=== PATIENT | male | born 1950 | race Caucasian/White ===

== ENCOUNTER 2018-02-17 14:34 | Emergency (ER) | payer MEDICARE, OTHER ==
[2018-02-17] MEDS ORDERED: Sodium Chloride 0.9% 500 ML IV ONE (14:54)
[2018-02-17] MEDS ORDERED: MethylPREDNISolone 40 mg Vial ONE (14:56)
[2018-02-17 15:00] LABS: BASO # 0.1 K/uL (0.0-0.2); BASO % 0.6 % (0.0-2.0); EOS # 1.2 K/uL (0.0-0.7); EOS % 8.4 % (0.0-4.0); LYMPH # 0.9 K/uL (1.0-4.3); LYMPH % 6.2 % (20.0-40.0); MEAN CELL VOLUME 92.5 fL (80.0-94.0); MEAN CORPUSCULAR HEMOGLOBIN 30.9 pg (27.0-31.0); MEAN CORPUSCULAR HGB CONC 33.4 g/dL (33.0-37.0); MEAN PLATELET VOLUME 8.5 fL (7.2-11.7); MONO # 0.8 K/uL (0.0-0.8); MONO % 5.4 % (0.0-10.0); NEUT # 11.8 K/uL (1.8-7.0); NEUT % 79.4 % (50.0-75.0); NRBC % 0.1 % (0.0-2.0); PLATELET COUNT 404 K/uL (130-400); RBC 4.84 Mil/uL (4.40-5.90); WHITE BLOOD COUNT 14.9 K/uL (4.8-10.8)
[2018-02-17 15:06] LABS: VENOUS BLOOD GAS BASE EXCESS -0.9 mmol/L (0.0-2.0); VENOUS BLOOD GAS PCO2 50 mmHg (40-60); VENOUS BLOOD GAS PO2 61 mm/Hg (30-55); VENOUS BLOOD PH 7.32 (7.32-7.43)
--- NOTE | 2018-02-17 15:12 | RAD ---
Date of service: 02/17/2018 PROCEDURE: CHEST RADIOGRAPH, 1 VIEW HISTORY: SOB COMPARISON: None available. FINDINGS: LUNGS: No dense consolidation appreciated. Linear thin bandlike opacities project over the lateral right upper lung zone appearances of unknown chronicity -chronic scarring is a consideration. Comparison with prior outside studies is advised. There is patchy low-density opacity bordering the left heart border over the lower lung zone of unclear significance on this single view semi-erect portable study. Its clinical significance - if any is unclear. Bilateral patchy lucencies throughout both lungs compatible with emphysematous changes and scattered abnormally prominent interstitial lung markings and probable minimal biapical pleural thickening is also suggested. PLEURA: No pneumothorax or pleural fluid seen. CARDIOVASCULAR: Normal. Minimal pulmonary venous congestion cannot be excluded. OSSEOUS STRUCTURES: Thoracic spondylosis. VISUALIZED UPPER ABDOMEN: Normal. OTHER FINDINGS: None. IMPRESSION: No dense consolidation. Bilateral nonspecific vague low-density patchy opacities most conspicuous and confluent bordering left heart. A more bandlike yet thin opacity simulating scarring and/or fibrosis projects over the right mid to upper lung zone. As these findings are of unknown chronicity, consider noncontrast CT chest imaging for further evaluation. Background COPD emphysema number interstitial lung markings are inferred. Heart size normal. Minimal pulmonary venous congestion based on this appearance cannot be excluded.
[2018-02-17 15:27] LABS: EOSINOPHIL 5 % (0-4); LYMPHOCYTE 10 % (20-40); MONOCYTE 5 % (0-10); NEUTROPHIL 80 % (50-75); PLATELET ESTIMATE NORMAL (NORMAL); TOTAL CELLS COUNTED 100
[2018-02-17 15:30] LABS: BLOOD UREA NITROGEN 15 mg/dL (9-20); GFR AFRICAN-AMERICAN > 60; GFR NON-AFRICAN AMERICAN > 60
[2018-02-17 15:31] LABS: ALB/GLOB RATIO 1.1 (1.0-2.1); ALBUMIN 4.2 g/dL (3.5-5.0); CALCIUM 9.1 mg/dl (8.6-10.4)
[2018-02-17 15:32] LABS: ALT/SGPT 19 U/L (21-72); AST/SGOT 19 U/L (17-59); B-TYPE NATRIURETIC PEPTIDE 60.8 pg/mL (0-900)
[2018-02-17] MEDS ORDERED: Albuterol-Ipratrop 3 mg / 0.5 (3 ml) UD ONE (15:32)
[2018-02-17] MEDS: Albuterol-Ipratrop 3 mg / 0.5 (3 ml) UD IH SCH (16:11)
--- NOTE | 2018-02-17 16:58 | C.PDOC ---
History Of Present Illness 68yo male with history of asthma, comes in with 2 day history of cough, and chest tightness. Patient arrives tachycardic, tachepneic, tri-prodding, and reports sweats and a productive cough. Patient states he has been intubated but many years prior. He denies any fever, chills, headache, nausea, vomiting and offers no additional medical complaints. Time Seen by Provider: 02/17/18 14:46 Chief Complaint (Nursing): Respiratory Distress History Per: Patient History/Exam Limitations: no limitations Onset/Duration Of Symptoms: Days Current Symptoms Are (Timing): Still Present Exacerbating Factor(s): Coughing Associated Symptoms: Productive Cough. denies: Fever, Chills Additional History Per: Patient Past Medical History Reviewed: Historical Data, Nursing Documentation, Vital Signs Vital Signs: Last Vital Signs Temp 98.6 F 02/17/18 17:01 Pulse 108 H 02/17/18 17:01 Resp 23 02/17/18 17:01 BP 127/75 02/17/18 17:01 Pulse Ox 100 02/17/18 17:27 - Medical History PMH: Asthma Denies: Chronic Kidney Disease Surgical History: No Surg Hx - [facility] Procedures TETANUS TOXOID ADMINIST (05/28/14) Family History: States: Unknown Family Hx - Social History Hx Tobacco Use: No Hx Alcohol Use: No Hx Substance Use: No - Immunization History Hx Tetanus Toxoid Vaccination: No Hx Influenza Vaccination: No Hx Pneumococcal Vaccination: No Review Of Systems Except As Marked, All Systems Reviewed And Found Negative. Constitutional: Negative for: Fever, Chills Cardiovascular: Positive for: Chest Pain (tightness) Respiratory: Positive for: Cough, Shortness of Breath, Sputum Gastrointestinal: Negative for: Nausea, Vomiting Neurological: Negative for: Headache Physical Exam - Physical Exam Appears: In Acute Distress (respiratory) Skin: Warm, Dry Head: Atraumatic, Normacephalic Eye(s): bilateral: Normal Inspection, PERRL, EOMI Oral Mucosa: Moist Neck: Normal ROM, Supple Chest: Symmetrical Cardiovascular: Rhythm Regular (tachycardic) Respiratory: Decreased Breath Sounds (poor air entry bilaterally), Wheezing, Other (white sputum) Gastrointestinal/Abdominal: Soft, No Tenderness Back: Normal Inspection Extremity: Normal ROM, No Pedal Edema Neurological/Psych: Oriented x3, Normal Cognition, Normal Motor, Normal Sensation Gait: Steady ED Course And Treatment - Laboratory Results Result Diagrams: 02/17/18 14:57 02/17/18 14:57 ECG: Interpreted By Me, Viewed By Me ECG Rhythm: Sinus Tachycardia, R BBB (incomplete) ECG Interpretation: No Acute Changes Interpretation Of ECG: no ST/T changes Rate From EC O2 Sat by Pulse Oximetry: 100 (RA) Pulse Ox Interpretation: Normal Medical Decision Making Medical Decision Making: Plan: -- Labs -- EKG -- Duoneb 3ml INH -- Solumedrol 125mg IVP -- Vapotherm treatment -- IV Fluids -- CXR Patient states he feels much better, I recommended he stay in the hospital, still has wheezing. Patient states he must go home. Plan to discharge with recommendation to return if he feels worst. Disposition Counseled Patient/Family Regarding: Studies Performed, Diagnosis, Need For Followup, Rx Given - Disposition Disposition: HOME/ ROUTINE Disposition Time: 17:37 Condition: STABLE Prescriptions: Albuterol 0.083% [Albuterol 0.083% Inhal Joi (2.5 mg/3 ml) UD] 2.5 mg IH QID # 24 neb Albuterol HFA [Ventolin HFA 90 mcg/actuation (8 g)] 1 puff IH QID PRN #1 puff PRN Reason: Cough Azithromycin 1 tab PO DAILY #6 tab Fluticasone/Salmeterol 500/50 [Advair Diskus] 1 puff IH Q12 #1 puff Instructions: Asthma, Adult (DC) Forms: [facility] (Bangladeshi), General Discharge Instructions - POA Present On Arrival: None - Clinical Impression Clinical Impression: Dyspnea, Exacerbation of asthma - Scribe Statement The provider has reviewed the documentation as recorded by the Romulo Garcia Provider Attestation: All medical record entries made by the Romulo were at my direction and personally dictated by me. I have reviewed the chart and agree that the record accurately reflects my personal performance of the history, physical exam, medical decision making, and the department course for this patient. I have also personally directed, reviewed, and agree with the discharge instructions and disposition.
[2018-02-17] MEDS ORDERED: Azithromycin 500mg/250ML NS 500 MG/250 ML BAG IVPB STA (17:35)
[2018-02-17 19:59] VITALS: BP 124/70; PULSE 99; RESP 20; TEMP 98.4; O2SAT 96
--- NOTE | 2018-02-18 20:49 | CARD ---
APPROVED REPORT Date of service: 02/17/2018 EKG Measurement Heart [id number] <Conclusion> Sinus tachycardia Possible Left atrial enlargement Incomplete right bundle branch block Left anterior fascicular block Nonspecific ST abnormality Abnormal ECG
== END 2018-02-17 19:50 | disposition home or self-care (01) ==
LOC: C.ER 14:34
DX: J45.901 Unspecified asthma with (acute) exacerbation (principal); R06.00 Dyspnea, unspecified
CPT/HCPCS: 71045; 80053; 82803; 83880; 84484; 85025; 93005; 94640; 94660; 96365; 96375; 99285; J0456; J2930; J7040

== ENCOUNTER 2018-11-13 01:40 | Emergency (ER) | payer MEDICARE ==
[2018-11-13 02:35] LABS: URINE BACTERIA RARE (<OCC); URINE BILIRUBIN NEGATIVE (NEGATIVE); URINE BLOOD 2+ (NEGATIVE); URINE CLARITY Clear (Clear); URINE COLOR Straw (YELLOW); URINE GLUCOSE (UA) NORMAL (Normal); URINE LEUKOCYTE ESTERASE NEG Leu/uL (Negative); URINE PROTEIN NEGATIVE (NEGATIVE); URINE UROBILINOGEN NORMAL mg/dL (0.2-1.0)
--- NOTE | 2018-11-13 02:39 | C.PDOC ---
History Of Present Illness 68 year old male presents to the ED c/o suprapubic abdominal pain and urinary retention for the pat one hour. Patient denies fever, chills, nausea, vomiting, diarrhea, rashes, back/flank pain. He has no known history of prostate issues. Time Seen by Provider: 11/13/18 01:49 Chief Complaint (Nursing): Male Genitourinary History Per: Patient History/Exam Limitations: no limitations Onset/Duration Of Symptoms: Hrs Current Symptoms Are (Timing): Still Present Severity: Moderate Quality Of Discomfort: "Pain" Associated Symptoms: Urinary Symptoms. denies: Nausea, Vomiting Additional History Per: Patient Past Medical History Reviewed: Historical Data, Nursing Documentation, Vital Signs Vital Signs: Last Vital Signs Temp 97.5 F L 11/13/18 01:49 Pulse 80 11/13/18 01:49 Resp 18 11/13/18 01:49 BP 135/79 11/13/18 01:49 Pulse Ox 97 11/13/18 01:49 - Medical History PMH: Asthma Surgical History: No Surg Hx - [facility] Procedures TETANUS TOXOID ADMINIST (05/28/14) Family History: States: No Known Family Hx - Social History Hx Tobacco Use: No Hx Alcohol Use: Yes Hx Substance Use: No - Immunization History Hx Tetanus Toxoid Vaccination: No Hx Influenza Vaccination: No Hx Pneumococcal Vaccination: No Review Of Systems Constitutional: Negative for: Fever, Chills Cardiovascular: Negative for: Chest Pain Respiratory: Negative for: Shortness of Breath Gastrointestinal: Positive for: Abdominal Pain. Negative for: Nausea, Vomiting, Diarrhea Genitourinary: Positive for: Other (urinary retention). Negative for: Dysuria, Hematuria Musculoskeletal: Negative for: Back Pain Skin: Negative for: Rash Neurological: Negative for: Weakness, Numbness, Headache, Dizziness Physical Exam - Physical Exam Appears: Well, Non-toxic, In Acute Distress (uncomfortable appearing ) Skin: Normal Color, Warm, Dry Head: Normacephalic Eye(s): bilateral: Normal Inspection Neck: Supple Cardiovascular: Rhythm Regular Respiratory: Normal Breath Sounds, No Rales, No Rhonchi, No Wheezing Gastrointestinal/Abdominal: Bowel Sounds, Soft, Tenderness (suprapubic TTP and distension), No Guarding, No Rebound Back: Normal Inspection, No CVA Tenderness Extremity: Normal ROM, No Tenderness, No Swelling Neurological/Psych: Oriented x3 Gait: Steady ED Course And Treatment O2 Sat by Pulse Oximetry: 97 (ON RA) Pulse Ox Interpretation: Normal Progress Note: RN placed darden cath and 350 ml of clear urine drained. Patient given PO Flomax. UA, Uxs ordered. UA neg for UTI. Patient given leg bag, Rx for Flomax and instructed to follow up with urology within 1 week. He understands he should return to ED if he has worsening/concerning symptoms. Reevaluation Time: 14:40 Reassessment Condition: Improved Disposition Counseled Patient/Family Regarding: Studies Performed, Diagnosis, Need For Followup, Rx Given - Disposition Referrals: Andre Shepard MD [Staff Provider] - Disposition: HOME/ ROUTINE Disposition Time: 14:40 Condition: STABLE Additional Instructions: FOLLOW UP WITH UROLOGIST WITHIN 1 WEEK USE MEDICATION DIRECTED RETURN TO EMERGENCY ROOM IF YOUR SYMPTOMS BECOME WORSE SEGUIRSE CON EL UROLOGISTA EN DIMITRI SEMANA UTILICE MEDICAMENTOS ARTEM SE DIRIGE VUELVA A LA RANDAL DE EMERGENCIA SI CHUCK SNTOMAS SE HACEN PEOR Prescriptions: Tamsulosin [Flomax] 0.4 mg PO DAILY #7 cap Instructions: Urinary Retention (DC) Forms: [employer] (Serbian) - Clinical Impression Clinical Impression: Urinary retention - Scribe Statement The provider has reviewed the documentation as recorded by the Scribe Pelon Montalvo All medical record entries made by the Scribe were at my direction and personally dictated by me. I have reviewed the chart and agree that the record accurately reflects my personal performance of the history, physical exam, medical decision making, and the department course for this patient. I have also personally directed, reviewed, and agree with the discharge instructions and disposition.
[2018-11-13 03:19] VITALS: BP 128/74; PULSE 74; RESP 20; TEMP 98.7
[2018-11-13 04:39] VITALS: O2SAT 97
== END 2018-11-13 03:14 | disposition home or self-care (01) ==
LOC: C.ER 01:40
DX: R33.9 Retention of urine, unspecified (principal)